=== PATIENT | male | born 1950 | race Caucasian/White ===

== ENCOUNTER 2020-05-13 06:55 | Day surgery (SDC) | payer OTHER ==
[~2020-05-13] VITALS: Ht 175.3 cm; Wt 81.6 kg
[2020-05-13 07:26] VITALS: BP 117/78
[2020-05-13 17:51] VITALS: BP 166/99
== END 2020-05-13 17:50 | disposition home or self-care (01) ==
LOC: DS 06:55 → OR 09:30 → DS 17:50
PROVIDERS: ATTEND Student in an Organized Health Care Education/Training Program
DX: M17.11 Unilateral primary osteoarthritis, right knee (principal); Z90.49 Acquired absence of other specified parts of digestive tract; E66.01 Morbid (severe) obesity due to excess calories; Z68.31 Body mass index [BMI] 31.0-31.9, adult
CPT/HCPCS: C1713; C1776; J0690; J1170; J1885; J2250; J2405; J2704; J3490; J7030; J7120